=== PATIENT | female | born 1985 | race Two or more races ===

== ENCOUNTER 2016-08-10 04:07 | Outpatient (CLI) | payer OTHER ==
[2016-08-10 04:26] VITALS: BMI 31.4
== END 2016-08-10 06:24 | disposition home or self-care (01) ==
LOC: FBCOUT 04:07 → FBC 04:07 → MERGE 04:07 → FBCOUT 06:24
PROVIDERS: ATTEND Obstetrics & Gynecology
DX: O47.9 False labor, unspecified (principal); Z3A.00 Weeks of gestation of pregnancy not specified

== ENCOUNTER 2016-08-12 14:48 | Inpatient (IN) | payer OTHER ==
[2016-08-12 16:05] VITALS: BMI 31.7
[2016-08-12] MEDS ORDERED: OXYTOCIN IN LR 500 ML IV ONE ×2 (16:27→16:35)
[2016-08-12] MEDS ORDERED: OXYTOCIN 10 UNITS/ML VIAL ONE (16:34)
[2016-08-12] MEDS ORDERED: LIDOCAINE Viscous 2% 15 ML UDCUP ONE (16:34)
[2016-08-12] MEDS ORDERED: LACTATED RINGERS 1,000 ML ONE (16:34)
[2016-08-12] MEDS ORDERED: IV START KIT ONE ×2 (16:34→16:56)
[2016-08-12] MEDS ORDERED: MINERAL OIL 25 ML BOT ONE (16:34)
[2016-08-12] MEDS ORDERED: LIDOCAINE 1% (PRES FREE) 30 ML VIAL ONE (16:34)
[2016-08-12] MEDS ORDERED: PUMP TUBING ONE (16:34)
[2016-08-12] MEDS: LACTATED RINGERS 1,000 ML IV SCH (17:05)
--- NOTE | 2016-08-12 18:05 | PCMAN ---
OB Admission Note - History : 6 Term: 5 : 0 Abortions (S&E): 0 Livin EDC:: 08/09/16 Gestational Age (weeks): 40 Days (#/7): 3 Admit Cervical Dilation:: 2-3 Admit Cervical Effacement (%):: 40 Admit Station:: -3 Admit Presentaton:: cephalic Membrane Status: Intact Contractions: Yes Contraction Frequency:: irregular Heart Rate:: 130 (pos accels) Status:: reassuring EFW:: 3100 Summary of Course:: 31yo , violet 08/09/16; admitted for elective induction at term. Pt has been having prodromal labor. Pt is well dated, with consistent anatomy u/s at 19w and growth u/s at 26w. course otherwise negative. Pt had a swollen nipple gland which cultured pos for staph. - Labs Blood Type: O (+) positive Rubella Status: Immune GBS Status: Negative - Physical Exam General: Afebrile, No Acute Distress Abdomen: Other (efw 3100g), No Tenderness Genitourinary: Normal Female Genitalia, Other (2-3/40/-3, cephalic) - Additional Comments admitted for induction at term. start low dose pitocin - up to 2mU FHT - reactive and reassuring at this time
[2016-08-12 18:52] LABS: HEMATOCRIT 35.1 % (37.0-47.0); HEMOGLOBIN 11.5 gm/l (12.0-16.0); MEAN CELL VOLUME 90.5 fl (81.0-99.0); MEAN CORPUSCULAR HEMOGLOBIN 29.6 pg (27.0-31.0); MEAN CORPUSCULAR HGB CONC 32.8 g/dl (33.0-37.0); RED CELL DISTRIBUTION WIDTH 13.6 % (11.5-14.5)
[2016-08-12] MEDS: OXYTOCIN IN LR 500 ML IV PRN (21:40)
[2016-08-13] MEDS: OXYTOCIN IN LR 500 ML IV PRN ×3 (00:06→06:00)
--- NOTE | 2016-08-13 04:21 | PDOC36 ---
Provider Note Subject: Intrapartum note Note: FHT reviewed: 130's, mod variability, reactive, cat I [place]: q5-6 min Continue pitocin at this time
--- NOTE | 2016-08-13 05:35 | PDOC36 ---
Provider Note Subject: Intrapartum note Note: Pt feeling ctx a bit more. FHT: 125, reactive, mod angie, no decels, cat I [place]: q2-5 min, mild SVE: 4/60/-3, posterior Start to increase pitocin.
--- NOTE | 2016-08-13 06:59 | PDOC36 ---
Provider Note Note: ob note: patient admitted by dr taylor for induction of labor at term. cervix: 4cm /80%/vertex -2. bulging membranes, arom with clear amniotic fluid. est. wt. 6.5 lbs. category 1 tracing. patient declined epidural and pain meds at this time.
[2016-08-13] MEDS: LACTATED RINGERS 1,000 ML IV SCH (07:22)
--- NOTE | 2016-08-13 10:18 | PCMDEL ---
Delivery Note - Labor 1st stage (hr/min):: 2hrs 56 min 2nd stage (hr/min):: 7 min 3rd stage (hr/min):: 28 min Total (hr/min):: 3hrs 31 min Pushed (hr/min):: 7 min - Delivery Delivery (Date): 08/13/16 Delivery (Time): 09:35 Infant Gender: Female Presentation: Cephalic Position: OA Umbilical Cord: 3 Vessel Delayed Cord Clamping:: 2-3 min 1 Minute Total: 9 5 Minute Total: 9 Placenta:: intact EBL:: 500cc Perineum:: intact, superficial left labial abrasion not requiring suturing Length ROM:: 2 hrs 56 min Comments:: patient pushed effectively after full dilatation. spontaneous vaginal delivery from fer to oa position with easy delivery of head, shoulders and body. baby cried spontaneously. light meconium (transparent) at time of delivery. baby placed skin to skin. delayed cord clamping followed by father of baby cutting cord. no lacerations noted, only minimal left labial abrasion not requiring sutures. placenta delivered spontaneously and intact. sponge and instrument count correct. rectal negative, sphinter intact, cervix intact. patient tolerated delivery well.
[2016-08-13] MEDS ORDERED: FLU VACC 2016-17 (36MO-64Y)/PF 60 MCG/0.5 ML SYRINGE IM V ONE (10:22)
[2016-08-13] MEDS ORDERED: MAGNESIUM HYDROXIDE 30 ML UDCUP PO PRN (10:24)
[2016-08-13] MEDS ORDERED: OXYCODONE/ACETAMINOPHEN 5/325 MG TABLET PO PRN (10:24)
[2016-08-13] MEDS ORDERED: LANOLIN 50 APPLIC/7G TUBE TP PRN (10:24)
[2016-08-13] MEDS ORDERED: BENZOCAINE/MENTHOL 60 APPLIC/BOT TP PRN (10:24)
[2016-08-13] MEDS ORDERED: IBUPROFEN 800 MG TABLET PO PRN (10:24)
[2016-08-13] MEDS ORDERED: SENNOSIDES 8.6 MG TABLET PO PRN (10:24)
[2016-08-14 06:36] LABS: HEMATOCRIT 23.1 % (37.0-47.0); HEMOGLOBIN 7.5 gm/l (12.0-16.0)
--- NOTE | 2016-08-14 07:15 | PDOC44 ---
- Subjective Day: 1 Reports Lochia Light, Denies Pain Tolerable - Objective Temp Pulse Resp BP Pulse Ox 98.4 F 78 16 101/60 08/14/16 02:22 08/14/16 02:22 08/14/16 02:22 08/14/16 02:22 Lab Results 08/14/16 06:05 Hgb 7.5 L D Hct 23.1 L Current Medications Generic Name Dose Route Start Last Admin Trade Name Freq PRN Reason Stop Dose Admin Benzocaine/Menthol 1 applic 08/13/16 10:24 Dermoplast TP PRN PRN Patient Comfort Emollient Ointment 1 applic 08/13/16 10:24 [id number]-[id number] TP PRN PRN sore nipples Ibuprofen 800 mg 08/13/16 10:24 08/13/16 18:07 Motrin PO 800 mg Q8H PRN Administration Pain (Mild) Magnesium Hydroxide 30 ml 08/13/16 10:24 Milk Of Magnesia PO BEDTIME PRN Constipation Oxycodone/Acetaminophen 1 - 2 tab 08/13/16 10:24 Percocet 5/325 PO Q4H PRN Pain (Moderate) Senna 17.2 mg 08/13/16 10:24 Senokot PO BEDTIME PRN Comfort Sodium Chloride 10 ml 08/13/16 10:24 Normal Saline 10ml Flush IV PRN PRN IV Flush Sodium Chloride 10 ml 08/13/16 17:00 08/14/16 06:39 Normal Saline 10ml Flush IV Not Given Q8HR SHAMAR Sodium Chloride 10 ml 08/13/16 10:28 Normal Saline 10ml Flush IV PRN PRN - Physical Exam General: Afebrile, No Acute Distress Fundus: Firm, Below Umbilicus Abdomen: No Tenderness, No Distention Disposition: Anticipate DC to Home (Pt desires to be discharge today. Stable. OK For d/c; f/u Dr. Kitchen in 4w.)
[2016-08-14 10:34] VITALS: BP 105/64
== END 2016-08-14 14:05 | disposition home or self-care (01) | DRG 775 ==
LOC: FBC 15:05
PROVIDERS: ADMIT Obstetrics & Gynecology; ATTEND Obstetrics & Gynecology
PROC: 3E033VJ Introduction of Other Hormone into Peripheral Vein, Percutaneous Approach (ICD-10-PCS; 2016-08-12)
PROC: 10907ZC Drainage of Amniotic Fluid, Therapeutic from Products of Conception, Via Natural or Artificial Opening (ICD-10-PCS; 2016-08-12)
PROC: 10E0XZZ Delivery of Products of Conception, External Approach (ICD-10-PCS; principal; 2016-08-13)
DX: O48.0 Post-term pregnancy (principal); O77.0 Labor and delivery complicated by meconium in amniotic fluid; O09.43 Supervision of pregnancy with grand multiparity, third trimester; Z3A.40 40 weeks gestation of pregnancy; Z37.0 Single live birth